=== PATIENT | female | born 1940 | race Caucasian/White ===

== ENCOUNTER 2021-10-31 13:19 | Emergency (ER) | payer MEDICARE, OTHER ==
[2021-10-31 13:36] VITALS: BP 158/82; PULSE 94
[2021-10-31 14:33] LABS: ANION GAP 6.4 meq/L (7-15); CHLORIDE,CL 101 mmol/L (98-107); ESTIMATED GFR 65 mL/min (>=60); SODIUM,NA 137 mmol/L (136-145)
== END 2021-10-31 15:15 | disposition home or self-care (01) ==
LOC: LL.ED 13:19
DX: R11.10 Vomiting, unspecified (principal); Z87.891 Personal history of nicotine dependence
CPT/HCPCS: 36415; 80053; 81001; 82272; 83605; 85025; 99283; 99284